=== PATIENT | male | born 1960 | race Caucasian/White ===

== ENCOUNTER → 2018-11-14 | Outpatient (CLI) | payer BC | END | disposition home or self-care (01) | LOC: CFH 09:46 | PROVIDERS: ATTEND Internal Medicine Cardiovascular Disease | DX: I25.10 Atherosclerotic heart disease of native coronary artery without angina pectoris (principal); I48.0 Paroxysmal atrial fibrillation; I51.7 Cardiomegaly; Z87.891 Personal history of nicotine dependence | CPT/HCPCS: 93306 ==